=== PATIENT | male | born 1960 | race Caucasian/White ===

== ENCOUNTER 2017-06-10 08:04 | Day surgery (SDC) | payer OTHER ==
[2017-06-10] MEDS ORDERED: ASPIRIN EC 325 MG TAB PO ONE (08:06)
[2017-06-10] MEDS ORDERED: FAMOTIDINE 20 MG TAB PO ONE (08:06)
[2017-06-10] MEDS ORDERED: DIAZEPAM 5 MG TAB PO ONE (08:06)
[2017-06-10] MEDS ORDERED: NS 1,000 ML IV ONE (08:06)
[2017-06-10] MEDS ORDERED: diphenhydrAMINE 25 MG CAP PO ONE (08:06)
--- NOTE | 2017-06-10 08:28 | CPEKG ---
Heart Rate: 51 RR Interval: 1176 P-R Interval: 176 QRSD Interval: 94 QT Interval: 452 QTC Interval: 417 P [place]: 52 QRS [place]: -9 T Wave [place]: 45 EKG Severity - ABNORMAL ECG - EKG Impression: SINUS RHYTHM EKG Impression: ANTERIOR INFARCT, AGE INDETERMINATE EKG Impression: Possible left atrial abnormality EKG Impression: Agree with above Electronically Signed By: Gianluca Melo 10-Jun-2017 16:55:55
[2017-06-10] MEDS ORDERED: fentaNYL 100 MCG/2 ML INJ ONE (08:44)
[2017-06-10] MEDS ORDERED: ASPIRIN EC 81 MG TAB PO ONE (08:44)
[2017-06-10] MEDS ORDERED: LIDOCAINE 1% 300 MG/30 ML SDV ONE (08:44)
[2017-06-10] MEDS ORDERED: MIDAZOLAM 2 MG/2 ML VIAL ONE (08:44)
[2017-06-10] MEDS ORDERED: HEPARIN 10,000 UNIT/10 ML MDV ONE (08:45)
[2017-06-10] MEDS ORDERED: IOPAMIDOL (ISOVUE-370) 150 ML BTL IV ONE (08:45)
[2017-06-10] MEDS ORDERED: VERAPAMIL 5 MG/2 ML VIAL ONE (08:45)
[2017-06-10 09:01] LABS: % IMMATURE GRANULYOCYTES 0.5 % (0.0-1.1); ABSOLUTE IMMATURE GRANULOCYTES 0.03 10^3/uL (0.00-0.10); ADD DIFF? NO; ADD MORPH? NO; ADD SCAN? NO; ANION GAP 11 mEq/L (8-16); ATYPICAL LYMPHOCYTE FLAG 0 (0-99); CALCIUM 8.8 mg/dL (8.5-10.4); CARBON DIOXIDE 21 mEq/l (22-31); CHLORIDE 111 mEq/L (97-110); CHOLESTEROL 155 mg/dL (140-220); CHOLESTEROL/HDL RATIO 3.97 RATIO (1.00-4.97); CREATININE 0.8 mg/dL (0.7-1.3); FRAGMENT RBC FLAG 0 (0-99); GLOMERULAR FILTRATION RATE > 60; GLUCOSE 94 mg/dL (70-100); HEMATOCRIT 48.2 % (40.0-51.0); HEMOGLOBIN 16.2 g/dL (13.7-17.5); HIGH DENSITY LIPOPROTEIN 39 mg/dL (40-65); LDL/HDL RATIO 2.21 RATIO (1.00-3.64); LEFT SHIFT FLG 0 (0-99); LIPEMIA HEMOLYSIS FLAG 80 (0-99); LOW DENSITY LIPOPROTEIN 86 mg/dL (80-100); MAGNESIUM 1.9 mg/dL (1.6-2.3); MEAN CELL HEMOGLOBIN 31.8 pg (27.9-34.1); MEAN CELL HEMOGLOBIN CONCENTR. 33.6 g/dL (32.4-36.7); MEAN CELL VOLUME 94.7 fL (81.5-99.8); MEAN PLATELET VOLUME 10.5 fL (8.7-11.7); NON-HIGH DENSITY LIPOPROTEIN 116 mg/dL (90-129); PLATELET CLUMPS FLAG 0 (0-99); PLATELET COUNT 199 10^3/uL (150-400); POTASSIUM 4.4 mEq/L (3.5-5.2); RED BLOOD CELL COUNT 5.09 10^6/uL (4.40-6.38); SODIUM 143 mEq/L (134-144); TRIGLYCERIDE 152 mg/dL (40-150); VERY LOW DENSITY LIPOPROTEINS 30 mg/dL (8-25)
[2017-06-10 09:19] LABS: INR 1.13 (0.83-1.16); PROTIME(PATIENT) 14.4 SEC (12.0-15.0)
--- NOTE | 2017-06-10 11:20 | PDDXCAT ---
Diagnostic Cath Note - . 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 LAD: Fluoroscopy reveals the presence of a previously stented segment in the mid -LAD. Angiography demonstrates a normal appearing proximal LAD. There is moderate neointimal proliferation within the stented segment producing approximately 30-40% stenosis. The second diagonal branch arises from the stented segment and has 60-70% ostial stenosis and 50% proximal stenosis. LCX: Dominant; normal in appearance. RCA: Non-dominant; normal in appearance. LVEF: 45% Wall motion: Mid anterior and anteroapical hypokinesis. Complications: None Estimated blood loss: <50ml Closure method: TR Band Assessment: 1) Ischemic cardiomyopathy with mildly to moderately reduced LV systolic function. 2) Coronary artery disease as described above. Plan: Based on the patient's clinical history, diagnostic angiography, and nuclear stress test results, medical therapy will be continued. He has had prior cardiac episodes in 1999 and 2004 that resulted in PCIs of the LAD. At least one of these was a myocardial infarction. Therefore, it seems that his recent nuclear stress test results reflect his prior myocardial infarction. He is not experiencing any symptoms suggestive of angina, arrhythmias, or CHF. His exercise stress test was notable for good exercise capacity without ischemic symptoms or ECG changes. His LDL today is 86. His target LDL should be less than 70. His simvastatin will be increased from 20 mg daily to 40 mg daily.
== END 2017-06-10 15:45 | disposition home or self-care (01) ==
LOC: FCATH 08:04
PROVIDERS: ATTEND Internal Medicine Interventional Cardiology
PROC: 4A023N7 Measurement of Cardiac Sampling and Pressure, Left Heart, Percutaneous Approach (ICD-10-PCS; principal; 2017-06-10)
PROC: B2111ZZ Fluoroscopy of Multiple Coronary Arteries using Low Osmolar Contrast (ICD-10-PCS; principal; 2017-06-10)
PROC: B2151ZZ Fluoroscopy of Left Heart using Low Osmolar Contrast (ICD-10-PCS; principal; 2017-06-10)
DX: I25.10 Atherosclerotic heart disease of native coronary artery without angina pectoris (principal); E78.5 Hyperlipidemia, unspecified; I10 Essential (primary) hypertension; R94.39 Abnormal result of other cardiovascular function study; K21.9 Gastro-esophageal reflux disease without esophagitis; Z95.5 Presence of coronary angioplasty implant and graft; Z72.0 Tobacco use
CPT/HCPCS: 93005; 93458; C1769; J1644; J2250; J3010; Q9967